=== PATIENT | male | born 1975 | race Caucasian/White ===

== ENCOUNTER 2023-05-30 12:52 | Day surgery (SDC) | payer OTHER ==
[~2023-05-30] VITALS: Ht 170.2 cm; Wt 122.5 kg
[~2023-05-30 12:52] MED LIST: LIDOCAINE 2%, 20 ML MDV ONE; NORMAL SALINE 10 ML VIAL ONE; iopamidoL 50 ML VIAL IV ONE; methylPREDNISolone ACETATE 40 MG/ML ONE
[2023-05-30 13:56] VITALS: O2SAT 98
[2023-05-30] MEDS ORDERED: fentaNYL CITRATE/PF 100 MCG/2 ML AMP ONE (15:07)
[2023-05-30] MEDS: MIDAZOLAM HCL 5 MG/5 ML VIAL ONE (15:24)
[2023-05-30 18:40] VITALS: BP_SYST 116; PULSE 69; RESP 18
== END 2023-05-30 16:33 | disposition home or self-care (01) ==
LOC: SDS 12:52 → SMU 12:54 → SDS 16:33
PROVIDERS: ATTEND Internal Medicine
DX: M51.16 Intervertebral disc disorders with radiculopathy, lumbar region (principal); M79.10 Myalgia, unspecified site; Z98.890 Other specified postprocedural states; Z79.899 Other long term (current) drug therapy
CPT/HCPCS: 62323; J1030; J2250; J3010; Q9967; 76000; J2001